=== PATIENT | female | born 1985 | race Caucasian/White ===

== ENCOUNTER → 2021-01-04 | Outpatient (CLI) | payer MEDICAID ==
[~2021-01-04] MED LIST: GLUCOPHAGE XR500 M1 PO; MOTRIN 800800 MG/TAB PO; PRENATAL TABLET PO; PROTONIX 40MG T40 MG PO
== END ==
LOC: DIA.ED 09:09
DX: O24.419 Gestational diabetes mellitus in pregnancy, unspecified control (principal)
CPT/HCPCS: G0108

== ENCOUNTER → 2021-01-17 | Outpatient (CLI) | payer MEDICAID | LOC: DIA.ED 08:42 | DX: O24.419 Gestational diabetes mellitus in pregnancy, unspecified control (principal); Z79.84 Long term (current) use of oral hypoglycemic drugs; I10 Essential (primary) hypertension | CPT/HCPCS: G0108 ==

== ENCOUNTER 2021-01-26 15:46 | Inpatient (IN) | payer MEDICAID ==
[~2021-01-26] VITALS: Ht 157.5 cm; Wt 104.5 kg
[2021-01-26] VITALS (7 sets, daily range): BP systolic 111–140; BP diastolic 74–87; PULSE 96–117; TEMP 97.7–98.6
--- NOTE | 2021-01-26 15:45 | NUR ---
36.2, G10L6 here on unit from [facility] with BPP 4/8, and decreased movement. Ambulatory to LDR6 with self. Changes into clean gown. Denies any LOF, or VB. Reports occasional contraction. Reports last movement 1 hour ago. EFM explained and placed x2. FHR tracing well. VS obtained and assessment completed. Plan of care reviewed with patient who verbalizes understanding.
[2021-01-26] MEDS ORDERED: PRENATAL TABLET PO (16:17)
[2021-01-26] MEDS ORDERED: PROTONIX 40MG T40 MG PO (16:17)
[2021-01-26] MEDS ORDERED: GLUCOPHAGE XR500 M1 PO (16:17)
--- NOTE | 2021-01-26 18:55 | NUR ---
Patient sitting upright in bed for meal, EFM removed due to difficulty tracing in this position. Patient continues to report no movement. Audible movement x1 heard on EFM. Patient continues to be reassured about reactive FHR tracing.
--- NOTE | 2021-01-26 20:30 | NUR ---
Patient request EFM off for sleeping. EFM removed per orders. Patient ambulatory to room 213. Plan of care reviewed with patient.
[2021-01-27] VITALS (31 sets, daily range): BP systolic 113–169; BP diastolic 62–105; PULSE 80–114; TEMP 97.4–98.5
--- NOTE | 2021-01-27 01:30 | NUR ---
Patient up to the bathroom. Reports feeling some movement at this time. Denies contractions.
--- NOTE | 2021-01-27 04:00 | NUR ---
Patient calls out and states that her water broke. This nurse to room and patient is in the bathroom sitting on the toilet. She states she woke up feeling "wet" and the fluid has continued to leak. Patient stands from toilet and fluid continues to run down her legs. Patient assisted with pericare and then taken to LR6 via wheelchair. EFMs applied in LR6, FHR reactive, CTX regular at 2-3 minutes. Patient reports feeling CTX and starting to breathe through them. SVE /-3 with positive amniotrace and large amount of clear fluid. Plan of care reviewed with patient, including Pen G for GBS unknown.
[2021-01-27 05:38] LABS: BASO % 0.2 % (0.0-2.0); EOS # 0.1 K/mm3 (0.0-0.7); GRAN # 6.5 K/mm3 (1.4-6.5); GRAN % 70.4 % (42.2-75.2); HEMOGLOBIN 13.1 g/dl (12.5-16.0); LYMPH # 1.7 K/mm3 (1.2-3.4); LYMPH % 18.6 % (20.0-51.0); MEAN CELL VOLUME 86 fl (80.0-100.0); MEAN CORPUSCULAR HEMOGLOBIN 29 pg (27.0-31.0); MEAN CORPUSCULAR HGB CONC 34 g/dl (33.0-37.0); MEAN PLATELET VOLUME 12.3 fl (7.4-10.4); MONO # 0.9 K/mm3 (0.1-0.6); MONO % 9.5 % (1.7-9.3); PLATELET COUNT 238 K/mm3 (130-400); RED BLOOD COUNT 4.54 M/mm3 (4.10-5.30); REDCELL DISTRIBUTION WIDTH-CV 13.4 % (11.5-14.5)
--- NOTE | 2021-01-27 06:30 | NUR ---
Rests in bed, alert. Denies any needs at this time.
--- NOTE | 2021-01-27 07:00 | NUR ---
Rests in bed, alert. Blood sugar checked, reports 89. Ambulates to the bathroom and back.
--- NOTE | 2021-01-27 08:45 | NUR ---
Pen g 2.5 mill units iv given as ordered and per protocol.
--- NOTE | 2021-01-27 09:30 | NUR ---
Ambulates to the bathroom. Toothpaste and tooth brush given per request. Soap and deodorant given per request. Dr. Vega checks on patient. Request to have toast. Dr. Vega agrees.
--- NOTE | 2021-01-27 10:30 | NUR ---
Pitocin 2 romel units iv started as ordered and per policy. 1045 Request epidural, anesthesia notified of request.
--- NOTE | 2021-01-27 11:00 | NUR ---
Sits up for epidural. 1105 Straight shot given by Luis garcia Catheter placed by anesthesia Luis. 1106 Medication given by anesthesia.
--- NOTE | 2021-01-27 12:00 | NUR ---
Rests in bed, alert. States feeling better. Blood sugar 85.
--- NOTE | 2021-01-27 12:45 | NUR ---
Rests in bed, alert. Pen g 2.5 romel units iv given as ordered and per protocol. States starting to feel contractions, patient pushes p.c.a. button.
--- NOTE | 2021-01-27 13:02 | NUR ---
Baby having variables. Vag check done, dilated to nine, zero station. Dr. Vega informed of information above. 1310 Patient states having pressure. Vag exam done, complete. Dr. Vega notified of patient complete. Dr. Vega here in room, prepped for delivery. 1316 Spontaneous delivery of baby girl by Dr. Vega. 1319 Spontaneous delivery of placenta by Dr. Vega. Pitocin started at 333ccs an hour as ordered.
--- NOTE | 2021-01-27 13:30 | NUR ---
Rests in bed, alert. Holds baby lovingly. Denies any pain or discomfort at this time.
--- NOTE | 2021-01-27 14:00 | NUR ---
Continues to hold baby lovingly. Denies any needs at this time. Offered to help order lunch for her. States her mother in law is bringing her something to eat.
--- NOTE | 2021-01-27 14:45 | NUR ---
Rests in bed, alert. Holds baby. Denies any needs at this time.
--- NOTE | 2021-01-27 18:30 | NUR ---
Resting in bed while holding baby. Updated whiteboard and reviewed POC. Denied questions or concerns.
[2021-01-28 00:15] VITALS: BP 122/79; PULSE 97; TEMP 97.9
[2021-01-28 03:45] VITALS: BP 108/67; PULSE 79; TEMP 98
[2021-01-28 07:45] VITALS: BP 106/63; PULSE 85; TEMP 98
--- NOTE | 2021-01-28 08:00 | NUR ---
Rests in bed, alert. Tylenol 1000 mg given as ordered. Denies any other needs at this time.
--- NOTE | 2021-01-28 11:34 | NUR ---
Blood sugar 108 two hours after eating.
--- NOTE | 2021-01-28 14:28 | NUR ---
Blood sugar 123 two hours after eating lunch.
[2021-01-28 17:15] VITALS: BP 123/87; PULSE 88; TEMP 98.1
[2021-01-28 20:00] VITALS: BP 136/82; PULSE 90; TEMP 98.2
[2021-01-29 06:45] VITALS: BP 113/82; PULSE 92; TEMP 98.5
[2021-01-29] MEDS ORDERED: MOTRIN 800800 MG/TAB PO (07:38)
--- NOTE | 2021-01-29 09:00 | NUR ---
[facility] CALLED FOR [facility]OM[facility] LAB RESULTS. MEDICAL RECORDS UNABLE TO FIND RESULTS. DR. DEL REAL NOTIFIED.
--- NOTE | 2021-01-29 09:20 | NUR ---
DR. DEL REAL CALLS DE. [facility]S OFFICE AND REQUEST TO TALK TO RIVER DRIVER PHYSICIAN. THE STATE WILL FAX US THE LAB RESULTS. FAX RECIEVED STATING NO BLOOD WORK WAS DONE ON MOTHER PER THEIR RECORDS. DR. DEL REAL REQUEST LABS BE COMPLETED ON MOTHER PRIOR TO BABY'S DISCHARGE.
--- NOTE | 2021-01-29 10:37 | NUR ---
Initial visit; Patient thanked Lyric Writer for offering congratulations for the of her daughter. Lyric Writer thanked patient for choosing [facility].
[2021-01-29 11:16] LABS: HIV 1/2 Antibodies Non-Reactive; HIV-1p24 Antigen Non-Reactive
--- NOTE | 2021-01-29 14:00 | NUR ---
[facility] LAB RESULTS NOT AVAILABLE PRIOR TO DISCHARGE DUE TO NO LABS DRAWN DURING OFFICE VISITS AND LAB NOT DRAWN UPON ADMIT. DR. DEL REAL TO REVIEW RESULTS WHEN AVAILALBE AND WILL NOTIFY PATIENT OF RESULTS.
--- NOTE | 2021-01-29 15:30 | NUR ---
DISCHARGE TEACHING COMPLETED. EDUCATED ON FOLLOW UP APPOINTMENT WITH DR. MILLER 03-02-21 AT 3:30PM. EDUCATED ON PRESCRIPTIONS. QUESTIONS INVITED AND ANSWERED.
[2021-01-30 04:59] LABS: HEPATITIS B SURFACE ANTIGEN Negative (Negative)
== END 2021-01-29 16:10 | disposition home or self-care (01) | DRG 807 ==
LOC: LDRO 15:46 → LDR 16:40 → OB 20:30 → LDRO 01-27 04:06 → LDR 01-27 04:07 → OB 01-27 04:07
PROVIDERS: ADMIT Obstetrics & Gynecology
PROC: 10E0XZZ Delivery of Products of Conception, External Approach (ICD-10-PCS; principal; 2021-01-27)
DX: O60.14X0 Preterm labor third trimester with preterm delivery third trimester, not applicable or unspecified (principal); Z37.0 Single live birth; O24.420 Gestational diabetes mellitus in childbirth, diet controlled; Z3A.36 36 weeks gestation of pregnancy; Z79.84 Long term (current) use of oral hypoglycemic drugs
CPT/HCPCS: OP; J2540; J2590; J7120

== ENCOUNTER 2022-01-21 17:23 | Emergency (ER) | payer MEDICAID ==
[~2022-01-21] VITALS: Ht 157.5 cm; Wt 88.2 kg
[~2022-01-21 17:23] MED LIST changes: +FLEXERIL 1010 MG/TAB PO
[2022-01-21 17:39] VITALS: TEMP 97.5
[2022-01-21 21:35] LABS: BASO % 0.3 % (0.0-2.0); EOS # 0.1 K/mm3 (0.0-0.7); EOS % 1.5 % (0.0-4.0); GRAN # 4.7 K/mm3 (1.4-6.5); GRAN % 64.1 % (42.2-75.2); HEMATOCRIT 43.7 % (37.0-47.0); HEMOGLOBIN 14.8 g/dl (12.5-16.0); LYMPH # 2.1 K/mm3 (1.2-3.4); MEAN CELL VOLUME 88 fl (80.0-100.0); MEAN CORPUSCULAR HEMOGLOBIN 30 pg (27-31); MEAN CORPUSCULAR HGB CONC 34 g/dl (33.0-37.0); MEAN PLATELET VOLUME 10.9 fl (7.4-10.4); MONO # 0.4 K/mm3 (0.1-0.6); MONO % 4.8 % (1.7-9.3); PLATELET COUNT 233 K/mm3 (130-400); RED BLOOD COUNT 4.95 M/mm3 (4.10-5.30)
[2022-01-21 21:52] LABS: ALBUMIN 4.2 gm/dL (3.5-5.0); BILIRUBIN,TOTAL 0.4 mg/dL (0.2-1.2); CALCIUM 9.5 mg/dL (8.4-10.2); CREATININE, serum 0.8 mg/dL (0.57-1.11); TOTAL PROTEIN 7.5 gm/dL (6.2-8.1)
[2022-01-21 22:12] LABS: THYROID STIMULATING HORMONE 1.76 uIU/mL (0.350-4.940)
[2022-01-22 00:45] VITALS: BP 114/78; PULSE 70
== END 2022-01-22 00:46 | disposition home or self-care (01) ==
LOC: COL.ER 17:23
PROVIDERS: Nurse Practitioner
DX: R00.2 Palpitations (principal); R07.89 Other chest pain; Z28.310 Unvaccinated for COVID-19; Z91.040 Latex allergy status

== ENCOUNTER → 2023-10-27 | Outpatient (CLI) | payer MEDICAID ==
[~2023-10-27] MED LIST changes: +Triamcinolone 40 MG/ML 1 ML VIAL IJ SCH
== END ==
LOC: COL.RAD 12:29
DX: M46.1 Sacroiliitis, not elsewhere classified (principal)
CPT/HCPCS: G0260; J0665; J3301